=== PATIENT | female | born 1955 | race Caucasian/White ===

== ENCOUNTER → 2017-11-14 | Outpatient (CLI) | payer MEDICARE, BC ==
[2017-11-14 13:01] LABS: Basophils % (A) 1 %; Eosinophils # (A) 0.2 k/uL (0-0.7); Eosinophils % (A) 2 %; HCT 39.3 % (34.0-46.0); HGB 12.7 gm/dL (11.4-16.0); Lymphocytes # (A) 1.9 k/uL (1.0-4.8); Lymphocytes % (A) 24 %; MCH 30.6 pg (25.0-35.0); MCHC 32.3 g/dL (31.0-37.0); MCV 94.5 fL (80.0-100.0); Mean Platelet Volume 7.4; Monocytes # (A) 0.3 k/uL (0-1.0); Monocytes % (A) 4 %; Neutrophils # (A) 5.1 k/uL (1.3-7.7); Neutrophils % (A) 66 %; Platelet Count 212 k/uL (150-450); RBC 4.16 m/uL (3.80-5.40); RDW 15.2 % (11.5-15.5); WBC 7.8 k/uL (3.8-10.6)
--- NOTE | 2017-11-14 14:41 | NM ---
EXAMINATION TYPE: NM bone 3 phase DATE OF EXAM: 11/14/2017 COMPARISON: None HISTORY: 62-year-old female mechanical loosening of internal prosthesis. Bilateral knee pain for 3 mo nths status post bilateral TKA. Right performed in 2006 and left in 2014. Technique: Triple phase bone scintigraphy was performed following the injection of 23.8 mCi Tc 99m MD P. Immediate images and 4.5 hours post injection images acquired. Imaging centered at the knees. FINDINGS: No asymmetric flow activity. Whole images show increased activity around the femoral components. Delayed images show uptake increased along the bilateral prostheses. IMPRESSION: Increased activity along the bilateral knee prostheses. Unable to exclude loosening.
[2017-11-14 15:02] LABS: Erythrocyte Sedimentation Rate 31 mm/hr (0-20)
== END | disposition home or self-care (01) ==
LOC: RADNMMAIN 07:01
PROVIDERS: ATTEND Orthopaedic Surgery
DX: M25.561 Pain in right knee (principal); M25.562 Pain in left knee; Z96.653 Presence of artificial knee joint, bilateral
CPT/HCPCS: 85652; 85025; 86140; 78315; 36415; A9503